=== PATIENT | female | born 1960 | race Caucasian/White ===

== ENCOUNTER → 2017-07-12 | Outpatient (CLI) | payer OTHER | LOC: CIMAGING 08:48 | PROVIDERS: ATTEND Internal Medicine | DX: Z12.31 Encounter for screening mammogram for malignant neoplasm of breast (principal) | CPT/HCPCS: G0202 ==

== ENCOUNTER 2017-10-29 09:20 | Emergency (ER) | payer OTHER ==
[2017-10-29 09:38] VITALS: RESP 16
--- NOTE | 2017-10-29 10:12 | EDPHY ---
H & P Time Seen by Provider: 10/29/17 09:23 HPI/ROS: CHIEF COMPLAINT: Fatigue, abnormal labs HISTORY OF PRESENT ILLNESS: Patient presents for fatigue and abnormal labs. Dr. Mony Rodriguez, rheumatology, called me prior to patient's arrival to discussed this case. Patient has history of rheumatoid arthritis since the age of 33. She has been on methotrexate since her diagnosis and has been on Remicade over the last few years. Patient and her psychologist experimental tell me that she had a flu-like illness approximately 2 weeks ago. She did withhold her methotrexate during that week but took her methotrexate as she normally does once a week last Tuesday. Over the last week her laboratory values have changed with the drop in hematocrit from 41-30.4 on the 8th of this month. Also elevated CRP. Patient describes general malaise and fatigue without fevers. No focal infectious symptoms. Specifically no significant congestion, sore throat, chest pain, cough, abdominal pain. She has had some decreased appetite and does have occasional bleeding per rectum likely from hemorrhoids. She also tells me that she had a colonoscopy 1 or 2 years ago which was unremarkable other than some hemorrhoids. REVIEW OF SYSTEMS: Constitutional: No fever, no chills. Eyes: No discharge. ENT: No sore throat. Cardiovascular: No chest pain, no palpitations. Respiratory: No cough, no shortness of breath. Gastrointestinal: No abdominal pain, no vomiting. Genitourinary: No dysuria. Musculoskeletal: No back pain. Skin: No rashes. Neurological: No headache. General Appearance: Alert, no distress. Eyes: Pupils equal and round no pallor or injection. ENT, Mouth: Mucous membranes moist. Respiratory: There are no retractions, lungs are clear to auscultation. Cardiovascular: Regular rate and rhythm. Gastrointestinal: Abdomen is soft and nontender, no masses, bowel sounds normal. Rectal exam with residual external hemorrhoids. No obvious blood. Empty vault. Neurological: Alert, oriented, nonfocal neuro exam. Normal tone. Skin: Warm and dry, no rashes. Musculoskeletal: Neck is supple nontender. Extremities are symmetrical, full range of motion, no edema. Psychiatric: Patient is oriented X 3, there is no agitation. Medical/surgical history: Rheumatoid arthritis, endometrial cancer, status post hysterectomy. Social history: Nonsmoker, teacher at [employer]. Smoking Status: Never smoked Constitutional: Initial Vital Signs Temperature (C) 36.7 C 10/29/17 09:31 Heart Rate 101 H 10/29/17 09:31 Respiratory Rate 16 10/29/17 09:31 Blood Pressure 123/70 H 10/29/17 09:31 O2 Sat (%) 98 10/29/17 09:31 O2 Delivery Mode Room Air Allergies/Adverse Reactions: erythromycin base Allergy (Severe, Verified 10/29/17 09:28) Anaphylaxis latex Allergy (Intermediate, Verified 10/29/17 09:29) local reaction Home Medications: Medication Instructions Recorded Acyclovir 10/29/17 Celebrex 10/29/17 Folic Acid 10/29/17 Lexapro 10/29/17 Methotrexate 10/29/17 Multivitamin (*) 10/29/17 Remicade Inj 100 mg (*) 10/29/17 medroxyPROGESTERone 10/29/17 predniSONE 10/29/17 Medical Decision Making ED Course/Re-evaluation: Re-evaluation after IV fluids. Patient with decreased heart rate, resolved tachycardia. Otherwise feeling"blah"with no specific complaints but not better. Discussed case with Dr. Rodriguez including vital signs, physical exam, laboratory results and plan. Plan is to draw blood cultures. Patient will then be discharged home as no indication of sepsis or infectious source. She will have close follow-up with her primary care physician and psychologist experimental early next week. Return precautions discussed in detail. Differential Diagnosis: Differential diagnosis includes but is not limited to pneumonia, urinary tract infection, gastroenteritis, sepsis, bacteremia. Patient clearly with inflammatory response and is immunocompromised but hemodynamically stable with no obvious source at this time. Discussed in detail with her psychologist experimental and will treat as outpatient at this point. She is to hold her methotrexate which was explained to her. Antibiotics will be deferred at this time. Cultures of blood and urine pending. Stable for outpatient follow-up. - Data Points Laboratory Results: Laboratory Results 10/29/17 09:40 10/29/17 09:40 10/29/17 10/29/17 10/29/17 11:24 11:24 11:20 WBC RBC Hgb Hct MCV MCH MCHC RDW Plt Count MPV Neut % (Auto) Lymph % (Auto) [place] % (Auto) Eos % (Auto) Baso % (Auto) Nucleat RBC Rel Count Absolute Neuts (auto) Absolute Lymphs (auto) Absolute Monos (auto) Absolute Eos (auto) Absolute Basos (auto) Absolute Nucleated RBC Immature Gran % Immature Gran # Sodium Potassium Chloride Carbon Dioxide Anion Gap BUN Creatinine Estimated GFR Glucose Calcium C-Reactive Protein Urine Color YELLOW Urine Appearance CLEAR Urine pH 7.0 (5.0-7.5) Ur Specific Bee <= 1.005 (1.002-1.030) Urine Protein NEGATIVE (NEGATIVE) Urine Ketones NEGATIVE (NEGATIVE) Urine Blood NEGATIVE (NEGATIVE) Urine Nitrate NEGATIVE (NEGATIVE) Urine Bilirubin NEGATIVE (NEGATIVE) Urine Urobilinogen 0.2 EU EU (0.2-1.0) Ur Leukocyte Esterase NEGATIVE (NEGATIVE) Urine RBC Cancelled Urine WBC Cancelled Ur Epithelial Cells Cancelled Ur Renal Epithelial Cell Cancelled Urine Crystals Cancelled Ammonium Urate Crystals Cancelled Calcium Carbonate Cryst Cancelled Calcium Phosphate Cryst Cancelled Calcium Oxalate Crystal Cancelled Leucine Crystals Cancelled Cystine Crystals Cancelled Uric Acid Crystals Cancelled Triple Phos Crystals Cancelled Sodium Urate Crystals Cancelled Sulfonamide Crystals Cancelled Cholesterol Crystals Cancelled Tyrosine Crystals Cancelled Bilirubin Crystals Cancelled Amorphous Sediment Cancelled Urine Bacteria Cancelled Epithelial Casts Cancelled Fatty Casts Cancelled Hyaline Casts Cancelled Granular Casts Cancelled Waxy Casts Cancelled Broad Casts Cancelled RBC Casts Cancelled WBC Casts Cancelled Urine Mucus Cancelled Urine Trichomonas Cancelled Urine Yeast Cancelled Urine Sperm Cancelled Ur Oval Fat Bodies Cancelled Ur Free Fat Droplets Cancelled Ur Unidentified Matter Cancelled Urine Glucose NEGATIVE (NEGATIVE) Urine Comment Cancelled Stool Occult Bld Scrn NEGATIVE (NEGATIVE) 10/29/17 10/29/17 09:40 09:40 WBC 17.92 10^3/uL H 10^3/uL (3.80-9.50) RBC 3.51 10^6/uL L 10^6/uL (4.18-5.33) Hgb 11.5 g/dL L g/dL (12.6-16.3) Hct 33.0 % L % (38.0-47.0) MCV 94.0 fL fL (81.5-99.8) MCH 32.8 pg pg (27.9-34.1) MCHC 34.8 g/dL g/dL (32.4-36.7) RDW 13.8 % % (11.5-15.2) Plt Count 547 10^3/uL H 10^3/uL (150-400) MPV 9.2 fL fL (8.7-11.7) Neut % (Auto) 83.8 % H % (39.3-74.2) Lymph % (Auto) 7.8 % L % (15.0-45.0) [place] % (Auto) 6.5 % % (4.5-13.0) Eos % (Auto) 0.9 % % (0.6-7.6) Baso % (Auto) 0.2 % L % (0.3-1.7) Nucleat RBC Rel Count 0.0 % % (0.0-0.2) Absolute Neuts (auto) 15.01 10^3/uL H 10^3/uL (1.70-6.50) Absolute Lymphs (auto) 1.40 10^3/uL 10^3/uL (1.00-3.00) Absolute Monos (auto) 1.16 10^3/uL H 10^3/uL (0.30-0.80) Absolute Eos (auto) 0.16 10^3/uL 10^3/uL (0.03-0.40) Absolute Basos (auto) 0.04 10^3/uL 10^3/uL (0.02-0.10) Absolute Nucleated RBC 0.00 10^3/uL 10^3/uL (0-0.01) Immature Gran % 0.8 % % (0.0-1.1) Immature Gran # 0.15 10^3/uL H 10^3/uL (0.00-0.10) Sodium 135 mEq/L mEq/L (135-145) Potassium 4.4 mEq/L mEq/L (3.5-5.2) Chloride 100 mEq/L mEq/L (97-110) Carbon Dioxide 24 mEq/l mEq/l (22-31) Anion Gap 11 mEq/L mEq/L (8-16) BUN 11 mg/dL mg/dL (7-23) Creatinine 0.8 mg/dL mg/dL (0.6-1.0) Estimated GFR > 60 Glucose 109 mg/dL H mg/dL (70-100) Calcium 9.4 mg/dL mg/dL (8.5-10.4) C-Reactive Protein Pending Urine Color Urine Appearance Urine pH Ur Specific Bee Urine Protein Urine Ketones Urine Blood Urine Nitrate Urine Bilirubin Urine Urobilinogen Ur Leukocyte Esterase Urine RBC Urine WBC Ur Epithelial Cells Ur Renal Epithelial Cell Urine Crystals Ammonium Urate Crystals Calcium Carbonate Cryst Calcium Phosphate Cryst Calcium Oxalate Crystal Leucine Crystals Cystine Crystals Uric Acid Crystals Triple Phos Crystals Sodium Urate Crystals Sulfonamide Crystals Cholesterol Crystals Tyrosine Crystals Bilirubin Crystals Amorphous Sediment Urine Bacteria Epithelial Casts Fatty Casts Hyaline Casts Granular Casts Waxy Casts Broad Casts RBC Casts WBC Casts Urine Mucus Urine Trichomonas Urine Yeast Urine Sperm Ur Oval Fat Bodies Ur Free Fat Droplets Ur Unidentified Matter Urine Glucose Urine Comment Stool Occult Bld Scrn Medications Given: Discontinued Medications Sodium Chloride (Ns) 1,000 mls @ 0 mls/hr IV EDNOW ONE; Wide Open PRN Reason: Protocol Stop: 10/29/17 10:19 Last Admin: 10/29/17 10:32 Dose: 1,000 mls Departure - Departure Clinical Impression: Viral syndrome Condition: Good Instructions: Viral Syndrome (ED) Additional Instructions: Rest, stay well hydrated, hold methotrexate until follow-up with psychologist experimental and primary physician. He should call both your primary care doctor and psychologist experimental 1st thing on Tuesday morning to arrange close follow-up. Please return to the emergency department if you develop worsening symptoms. Referrals: Lizz Emanuel MD [Primary Care Provider] - As per Instructions MONY RODRIGUEZ [Non Staff Provider ()] - As per Instructions
[2017-10-29] MEDS ORDERED: NS 1,000 ML IV ONE (10:18)
[2017-10-29 10:38] LABS: PLATELET COUNT 547 10^3/uL (150-400)
[2017-10-29 12:08] VITALS: BP 119/69; PULSE 86; TEMP 98.8; O2SAT 97
== END 2017-10-29 12:07 | disposition home or self-care (01) ==
LOC: CED 09:20
DX: B34.9 Viral infection, unspecified (principal); E86.9 Volume depletion, unspecified; Z91.040 Latex allergy status
CPT/HCPCS: 80048-PO; 81003-PO; 82270-PO; 85025-PO

== ENCOUNTER → 2018-12-21 | Outpatient (CLI) | payer OTHER | LOC: CIMAGING 14:25 | PROVIDERS: ATTEND Internal Medicine | DX: Z12.31 Encounter for screening mammogram for malignant neoplasm of breast (principal) ==